=== PATIENT | female | born 1990 | race African-American/Black ===

== ENCOUNTER 2017-07-24 17:52 | Emergency (ER) | payer OTHER ==
[2017-07-24 17:59] VITALS: BP 130/90; PULSE 69; TEMP 98.7; BMI 28.6
--- NOTE | 2017-07-24 18:59 | PDOC ---
History of Present Illness - History of Present Illness Initial Comments: 07/24/17 18:59 The patient is a 26 year old female, with a significant past medical history of PCOS, who presents to the emergency department with, intermittent left lower quadrant abdominal pain beginning approx. 4 hours ago. The patient reports a sudden onset of the left lower quadrant abdominal pain while in sitting in class at 2:30 pm earlier today described as a 9/10 cramping-like pain that lasted for approx. 45 minutes before resolving. The patient states she took 2 Ibuprofen for the pain while in class with mild relief. The patient reports she experienced the pain once more after arriving to the ED and describes the second episode of left lower quadrant abdominal pain as a 8/10 cramping pain. The patient denies any chance of and reports her LMP was in May ( patient reports she has irregular menstrual periods secondary to her PCOS). She denies recent fevers, chills, headache or dizziness. She denies recent nausea, vomit, diarrhea or constipation. She denies recent dysuria, frequency, urgency or hematuria. She denies recent chest pain or shortness of breath. Allergies: NKA <Allan Zepeda - Last Filed: 07/24/17 20:53> - General History Source: Patient Exam Limitations: No Limitations <Shayy Milian - Last Filed: 07/27/17 11:08> - General Chief Complaint: Pain Stated Complaint: LLQ ABD PAIN Time Seen by Provider: 07/24/17 18:25 Past History <Allan Zepeda - Last Filed: 07/24/17 20:53> - Past Medical History COPD: No Other medical history: PCOS - Reproductive History Polycystic Ovaries: Yes - Suicide/Smoking/Psychosocial Hx Smoking History: Never smoked Have you smoked in the past 12 months: No Information on smoking cessation initiated: No Hx Alcohol Use: No Drug/Substance Use Hx: No Substance Use Type: None <Shayy Milian - Last Filed: 07/27/17 11:08> - Past Medical History Allergies/Adverse Reactions: Allergies Allergy/AdvReac Type Severity Reaction Status Date / Time No Known Allergies Allergy Verified 07/24/17 17:55 Home Medications: Ambulatory Orders Ibuprofen [Motrin -] 600 mg PO TID PRN #20 tablet 07/24/17 Review of Systems - Review of Systems Comments:: 07/24/17 18:59 GENERAL/CONSTITUTIONAL: No fever or chills. No weakness. HEAD, EYES, EARS, NOSE AND THROAT: No change in vision. No ear pain or discharge. No sore throat. CARDIOVASCULAR: No chest pain or shortness of breath. RESPIRATORY: No cough, wheezing, or hemoptysis. GASTROINTESTINAL: (+) Left lower quadrant abdominal pain. No nausea, vomiting, diarrhea or constipation. GENITOURINARY: No dysuria, frequency, or change in urination. MUSCULOSKELETAL: No joint or muscle swelling or pain. No neck or back pain. SKIN: No rash NEUROLOGIC: No headache, vertigo, loss of consciousness, or change in strength/ sensation. ENDOCRINE: No increased thirst. No abnormal weight change. HEMATOLOGIC/LYMPHATIC: No anemia, easy bleeding, or history of blood clots. ALLERGIC/IMMUNOLOGIC: No hives or skin allergy. <Allan Zepeda - Last Filed: 07/24/17 20:53> *Physical Exam - Vital Signs Last Vital Signs Temp Pulse Resp BP Pulse Ox 98.7 F 69 20 130/90 100 07/24/17 17:53 07/24/17 17:53 07/24/17 17:53 07/24/17 17:53 07/24/17 17:53 - Physical Exam Comments: 07/24/17 18:59 GENERAL: Awake, alert, and fully oriented, in no acute distress HEAD: No signs of trauma EYES: PERRLA, EOMI, sclera anicteric, conjunctiva clear ENT: Auricles normal inspection, hearing grossly normal, nares patent, oropharynx clear without exudates. Moist mucosa NECK: Normal ROM, supple, no lymphadenopathy, JVD, or masses LUNGS: Breath sounds equal, clear to auscultation bilaterally. No wheezes, and no crackles HEART: Regular rate and rhythm, normal S1 and S2, no murmurs, rubs or gallops ABDOMEN: Soft, nontender, normoactive bowel sounds. No guarding, no rebound. No masses BACK: No CVA tenderness. EXTREMITIES: Normal range of motion, no edema. No clubbing or cyanosis. No cords, erythema, or tenderness NEUROLOGICAL: Cranial nerves II through XII grossly intact. Normal speech, normal gait SKIN: Warm, Dry, normal turgor, no rashes or lesions noted. <Allan Zepeda - Last Filed: 07/24/17 20:53> - Vital Signs Last Vital Signs Temp Pulse Resp BP Pulse Ox 98.7 F 69 20 130/90 100 07/24/17 17:53 07/24/17 17:53 07/24/17 17:53 07/24/17 17:53 07/24/17 17:53 <Shayy Milian - Last Filed: 07/27/17 11:08> ED Treatment Course - RADIOLOGY Radiograph Interpretation: 07/24/17 20:53 EXAM#: TYPE/EXAM: RESULT: [id number] US/TRANSVAGINAL ULTRASOUND US Transvaginal ultrasound Clinical information: evaluate for left ovarian torsion, cyst The exam was performed utilizing transvaginal as well as transabdominal scanning. Several bilateral subcentimeter ovarian follicles are noted. There is no Doppler evidence of ovarian torsion, sensitivity 70%. A small to moderate amount of free fluid is seen within the cul-de-sac. The uterus appears unremarkable in overall size and echogenicity. No focal uterine pathology is noted. Endometrial thickness appears within normal limits measuring 0.4 cm. Impression: A small to moderate amount of free fluid is seen within the cul-de-sac. The remainder of the study appears unremarkable as noted above. Reported By: Scott Brandt MD <Allan Zepeda - Last Filed: 07/24/17 20:53> - RADIOLOGY Radiology Studies Ordered: Category Date Time Status TRANSVAGINAL ULTRASOUND US [US] Stat Ultrasound 07/24/17 18:19 Ordered <Shayy Milian - Last Filed: 07/27/17 11:08> Medical Decision Making - Medical Decision Making 07/24/17 18:56 Mrs. Hui is a 26-year-old female with a history of PCO who presents emergency department with a complaint of left lower quadrant pain. Patient states she was in her usual state of health, was in class when she noted severe left lower quadrant pain at approximately 2:50 PM. No prior episodes like this. No fevers or chills. No discharge. No vaginal bleeding. Patient's last induce period was in May, she had one natural. In 2016. No prior pregnancies. Patient states her pain was very sharp, lasted possibly 45 minutes and then improved, patient took Motrin while in class. Patient states when she urinates she also has pain On examination RRR CTA B/L No LLQ tenderness to palpation No CVA tenderness DD: OV torsion vs. ruptured left ovarian cyst vs? Left kidney stone??? Will do: UA UHcg Pelvic US consider CT <Shayy Milian - Last Filed: 07/27/17 11:08> *DC/Admit/Observation/Transfer - Attestations Scribe Attestion: 07/24/17 18:59 Documentation prepared by Allan Zepeda, acting as medical orderly for Shayy Milian MD. <Allan Zepeda - Last Filed: 07/24/17 20:53> <Shayy Milian - Last Filed: 07/27/17 11:08> Diagnosis at time of Disposition: Ruptured ovarian cyst - Discharge Dispostion Disposition: HOME Condition at time of disposition: Stable - Prescriptions Prescriptions: Ibuprofen [Motrin -] 600 mg PO TID PRN #20 tablet PRN Reason: Moderate Pain - Patient Instructions Printed Discharge Instructions: DI for Ovarian Cyst Additional Instructions: Local warmth to area of pain Motrin 600 mg 3 times a day as needed (take with food) Return to ER if you have persistent, severe pain or vomiting/fever Follow-up with your grab hooker later this week as already scheduled
[2017-07-24 19:11] LABS: PH,URINE 5.5 (4.5-8); URINE APPEARANCE Clear; URINE BILIRUBIN Negative (NEGATIVE); URINE GLUCOSE (UA) Negative (NEGATIVE); URINE KETONE Negative (NEGATIVE); URINE NITRITE Negative (NEGATIVE); URINE PROTEIN Negative (NEGATIVE); URINE UROBILINOGEN 0.2 (0.2-1.0)
[2017-07-24 19:12] LABS: URINE BLOOD Trace-lysed (NEGATIVE); URINE COLOR YELLOW; URINE LEUK ESTERASE TRACE (NEGATIVE)
[2017-07-24 19:16] LABS: HCG,QUALITATIVE URINE NEGATIVE
[2017-07-24 19:31] LABS: EPI CELLS FEW /HPF; URINE BACTERIA FEW /hpf (NEGATIVE)
--- NOTE | 2017-07-24 19:43 | PDOC ---
*Physical Exam - Vital Signs Last Vital Signs Temp Pulse Resp BP Pulse Ox 98.7 F 69 20 130/90 100 07/24/17 17:53 07/24/17 17:53 07/24/17 17:53 07/24/17 17:53 07/24/17 17:53 ED Treatment Course - ADDITIONAL ORDERS Additional order review: Laboratory Results 07/24/17 18:35 Urine Color Yellow Urine Appearance Clear Urine pH 5.5 Ur Specific [place] 1.010 Urine Protein Negative Urine Glucose (UA) Negative Urine Ketones Negative Urine Blood Trace-lysed H Urine Nitrite Negative Urine Bilirubin Negative Urine Urobilinogen 0.2 Ur Leukocyte Esterase Trace H Urine RBC 2-5 Urine WBC 2-5 Ur Epithelial Cells Few Urine Bacteria Few Urine HCG, Qual Negative Progress Note - Progress Note Progress Note: Care of this patient received from Dr. Milian. Transvaginal ultrasound performed: This showed no evidence of torsion of left ovary. There was a small 2 moderate amount of free fluid in the cul-de-sac. There is evidence of ovarian follicles without distinct cyst. Results discussed with the patient. Patient already has an appointment scheduled with her surgical assistant later this week in [place] where she resides when not attending college. Meanwhile, she should continue ibuprofen and apply warm compresses to the left lower abdomen. Prescription for ibuprofen 600 mg 3 times a day has been sent to her pharmacy. She should return to the emergency room if she has persistent severe pain, vomiting, fever. *DC/Admit/Observation/Transfer Diagnosis at time of Disposition: Ruptured ovarian cyst - Discharge Dispostion Disposition: HOME Condition at time of disposition: Stable - Prescriptions Prescriptions: Ibuprofen [Motrin -] 600 mg PO TID PRN #20 tablet PRN Reason: Moderate Pain - Referrals - Patient Instructions Printed Discharge Instructions: DI for Ovarian Cyst Additional Instructions: Local warmth to area of pain Motrin 600 mg 3 times a day as needed (take with food) Return to ER if you have persistent, severe pain or vomiting/fever Follow-up with your surgical assistant later this week as already scheduled - Post Discharge Activity
[2017-07-24] MEDS ORDERED: IBUPROFEN 600 MG TABLET (FP) PO ONE ×2 (21:19→21:23)
== END 2017-07-24 21:26 | disposition home or self-care (01) ==
LOC: FER 17:52
DX: N83.209 Unspecified ovarian cyst, unspecified side (principal)
CPT/HCPCS: 76830-TC; 81003; 81015; 84703; 99281-25